=== PATIENT | female | born 1960 ===

== ENCOUNTER 2019-08-07 07:32 | Emergency (ER) | payer SELFPAY ==
[2019-08-07 09:04] VITALS: BP 141/85
--- NOTE | 2019-08-07 09:26 | ED ---
Head Injury - HPI Summary HPI Summary: This patient is a 59-year-old female presenting to the ED with a head injury. Patient states she tripped over a a ledge and fell forward hitting her head. She has a cephalohematoma located to the upper left frontal area she denies headache at this time. She denies any pain. Denies any other injuries during the fall. She denies any dizziness or lightheadedness prior to the fall. She takes no blood thinners, however is on aspirin daily. - History Of Current Complaint Chief Complaint: EDHeadInjury Stated Complaint: FALL, HEAD LAC Time Seen by Provider: 08/07/19 07:39 Hx Obtained From: Patient Mechanism Of Injury: Blunt Trauma Onset/Duration: Started Hours Ago Onset of Pain: Minutes Severity Currently: Mild Severity Initially: Mild Pain Intensity: 0 Pain Scale Used: 0-10 Numeric Location of Head Injury: Frontal Location: Discrete At: - left frontal Alleviating Factor(s): Rest - Risk Factors SDH Risk Factor: Negative - Allergies/Home Medications Allergies/Adverse Reactions: Allergies Allergy/AdvReac Type Severity Reaction Status Date / Time NSAIDS (Non-Steroidal Allergy See Comment Verified 08/07/19 07:38 Anti-Inflamma Home Medications: Home Medications Aspirin EC TAB* [Ecotrin EC Low Dose 81 MG*] 81 mg PO DAILY 08/07/19 [History Confirmed 08/07/19] Atenolol TAB* [Tenormin TAB* 50 MG] 100 mg PO DAILY 08/07/19 [History Confirmed 08/07/19] Hydrochlorothiazide TAB* [Hydrodiuril TAB*] 12.5 mg PO DAILY 08/07/19 [History Confirmed 08/07/19] Levothyroxine TAB* [Synthroid TAB*] 50 mcg PO DAILY 08/07/19 [History Confirmed 08/07/19] PMH/Surg Hx/FS Hx/Imm Hx Previously Healthy: Yes - Immunization History Hx Pertussis Vaccination: No Immunizations Up to Date: Yes Infectious Disease History: No Infectious Disease History: Denies: Traveled Outside the [place] in Last 30 Days - Social History Occupation: Employed Full-time Lives: With Family Alcohol Use: Occasionally Hx Substance Use: No Substance Use Type: Reports: None Smoking Status (MU): Never Smoked Tobacco Review of Systems Negative: Fever, Chills, Fatigue, Skin Diaphoresis Negative: Palpitations, Chest Pain Negative: Shortness Of Breath, Cough Negative: Arthralgia, Myalgia Skin: Negative Negative: Anxious, Depressed All Other Systems Reviewed And Are Negative: Yes Physical Exam Triage Information Reviewed: Yes Vital Signs On Initial Exam: Initial Vitals Temp Pulse Resp BP Pulse Ox 98.1 F 60 16 171/90 98 08/07/19 07:35 08/07/19 07:35 08/07/19 07:35 08/07/19 07:35 08/07/19 07:35 Vital Signs Reviewed: Yes Appearance: Positive: Well-Appearing, Well-Nourished Skin: Positive: Warm, Skin Color Reflects Adequate Perfusion Head/Face: Positive: Cephalohematoma Eyes: Positive: EOMI, TONY, Conjunctiva Clear Neck: Positive: Supple, No Lymphadenopathy Respiratory/Lung Sounds: Positive: Clear to Auscultation, Breath Sounds Present Cardiovascular: Positive: RRR, Pulses are Symmetrical in both Upper and Lower Extremities Musculoskeletal: Positive: Normal, Strength/ROM Intact Neurological: Positive: Speech Normal Psychiatric: Positive: Normal, Affect/Mood Appropriate AVPU Assessment: Alert Procedures - Sedation Patient Received Moderate/Deep Sedation with Procedure: No Diagnostics - Vital Signs Vital Signs Temp Pulse Resp BP Pulse Ox 08/07/19 09:04 98.1 F 52 18 141/85 97 08/07/19 08:58 141/85 08/07/19 08:37 57 97 08/07/19 08:13 156/95 08/07/19 07:44 58 98 08/07/19 07:43 58 171/130 97 08/07/19 07:35 98.1 F 60 16 171/90 98 - Laboratory Lab Statement: Any lab studies that have been ordered have been reviewed, and results considered in the medical decision making process. Head Injury Course/Dx Course Of Treatment: And around the ED, the patient appears well. No neurologic deficits noted. ANO 3. He denies any headache or head pain. There is an obvious hematoma to the left frontal area of the forehead. CT brain obtained which shows no acute abnormalities. There is an overlying abrasion, however no blood loss. - Diagnoses Differential Diagnosis/HQI/PQRI: Concussion Without LOC, Contusion, Hematoma Provider Diagnoses: Traumatic cephalohematoma - Critical Care Time Critical Care Statement: Critical care time is provided exclusive of any time spent performing procedures. Discharge ED - Sign-Out/Discharge Documenting (check all that apply): Patient Departure - Discharge Plan Condition: Stable Disposition: HOME Patient Education Materials: Hematoma (ED) Forms: *Work Release Referrals: Angel WHITMORE,Donato Renee [Primary Care Provider] - Additional Instructions: No evidence of any acute abnormality If you develop any concussive like symptoms, please rest until you feel better These include dizziness, nausea, OLIVA, visual changes If you develop any worsening symptoms, please return to the ED - Billing Disposition and Condition Condition: STABLE Disposition: Home - Attestation Statements Provider Attestation: I was available for consult. This patient was seen by the KARIS. The patient was not presented to, seen by, or examined by me. Carlito Escudero MD Status of Scribe Document: Viewed
== END 2019-08-07 09:04 | disposition home or self-care (01) ==
LOC: ED 07:32
DX: S00.03XA Contusion of scalp, initial encounter (principal); S09.90XA Unspecified injury of head, initial encounter; W19.XXXA Unspecified fall, initial encounter; Y92.9 Unspecified place or not applicable; Z79.890 Hormone replacement therapy; Z79.82 Long term (current) use of aspirin; Z88.8 Allergy status to other drugs, medicaments and biological substances
CPT/HCPCS: 70450; 99282